=== PATIENT | male | born 1975 | race African-American/Black ===

== ENCOUNTER 2023-03-05 07:27 | Emergency (ER) | payer OTHER ==
[2023-03-05] MEDS ORDERED: Nitroglycerin 0.4 MG TAB 1 EACH ONE (08:06)
[2023-03-05] MEDS ORDERED: Aspirin Chewable 81 MG TAB ONE (08:06)
[2023-03-05 09:28] LABS: #Eosinphils 0.2 thou/uL (0.0-0.7); #Monocytes 0.4 thou/uL (0.11-0.59); #Neutrophils 3.6 thou/uL (1.40-6.50); %Basophils 0.4 % (0.0-1.0); %Eosinophils 3.6 % (0.0-10.0); %Lymphocytes 35.6 % (21.0-51.0); %Monocytes 6.5 % (0.0-10.0); %Neutrophils 53.6 % (42.0-75.0); Hematocrit 42.7 % (42.0-52.0); Hemoglobin 13.9 g/dL (14.0-18.0); Mean Corpuscular HGB CONC 32.6 g/dL (32.0-36.0); Mean Corpuscular Hemoglobin 29.4 pg (27.0-31.0); Mean Corpuscular Volume 90.3 fl (78.0-98.0); Mean Platelet Volume 9.5 fL (7.4-10.4); Platelet Count 207 10x3/uL (130-400); RBC Distribution Width 13.7 % (11.5-14.5); Red Blood Cell (RBC) Count 4.73 mill/uL (4.70-6.10); White Blood Cell (WBC) Count 6.8 10x3/uL (4.8-10.8)
[2023-03-05] MEDS ORDERED: Iopamidol-370 76% 500 ML MDV (1 ML CHARGE) ONE (09:44)
[2023-03-05 09:53] LABS: Troponin I Less than 0.010 ng/mL (< 0.028)
[2023-03-05 10:06] LABS: Albumin 4.1 g/dL (3.5-5.0)
[2023-03-05 10:07] LABS: Chloride 106 mmol/L (98-107); Potassium 4.2 mmol/L (3.5-5.1); Sodium 137 mmol/L (136-145)
[2023-03-05 10:08] LABS: Calcium 9.1 mg/dL (7.8-10.44)
[2023-03-05 10:09] LABS: Globulin 2.4 g/dL (2.4-3.5); Glucose 94 mg/dL (70-105); Protein, Total 6.5 g/dL (6.0-8.3)
[2023-03-05 10:10] LABS: Carbon Dioxide 22 mmol/L (22-29)
[2023-03-05 10:11] LABS: Bilirubin, Total 0.5 mg/dL (0.2-1.2)
[2023-03-05 10:12] LABS: Alkaline Phosphatase 84 U/L (40-110); Calc. Creatinine Clearance 0 mL/min (70-130); Estimated GFR 96
[2023-03-05 10:13] LABS: BUN (Urea Nitrogen) 8 mg/dL (8.9-20.6)
[2023-03-05 10:14] LABS: AST (SGOT) 13 U/L (5-34)
[2023-03-05 10:15] LABS: ALT (SGPT) 17 U/L (8-55); Lipase 32 U/L (8-78)
[2023-03-05 10:58] LABS: Anion Gap 13 mmol/L (10-20)
[2023-03-05 13:18] LABS: Troponin I Less than 0.010 ng/mL (< 0.028)
== END 2023-03-05 14:00 | disposition home or self-care (01) ==
LOC: ERS 07:27 → EDBD 07:27 → ERS 14:00
DX: R07.9 Chest pain, unspecified (principal); I10 Essential (primary) hypertension; F17.210 Nicotine dependence, cigarettes, uncomplicated
CPT/HCPCS: 36415; 36416; 71045; 71275; 80053; 83690; 83880; 84484; 85025; 85379; 93005; 94760; Q9967